=== PATIENT | female | born 1970 ===

== ENCOUNTER → 2018-01-05 | Outpatient (CLI) | payer BC ==
[2018-01-05 12:51] LABS: BASOPHILS ABSOLUTE AUTO 0.05 K/mm3 (0.00-0.23); BASOPHILS PERCENT AUTO 1 % (0-2); EOSINOPHILS ABSOLUTE AUTO 0.25 K/mm3 (0.00-0.68); EOSINOPHILS PERCENT AUTO 3 % (0-6); Hematocrit 45.3 % (33.0-51.0); Hemoglobin 15.6 g/dL (11.5-16.0); IMMATURE GRAN ABSOLUTE AUTO 0.02 K/mm3 (0.00-0.10); IMMATURE GRAN PERCENT AUTO 0 % (0-1); LYMPHOCYTES PERCENT AUTO 37 % (21-46); MONOCYTES ABSOLUTE AUTO 0.69 K/mm3 (0.16-1.47); MONOCYTES PERCENT AUTO 9 % (4-13); Mean Corpuscular HGB 31.5 pg (26.0-34.0); Mean Corpuscular HGB Conc 34.4 g/dL (31.5-36.5); Mean Corpuscular Volume 92 fL (80-100); Mean Platelet Volume 9.8 fL (9.1-12.4); NEUTROPHILS ABSOLUTE AUTO 3.72 K/mm3 (1.96-9.15); NEUTROPHILS PERCENT AUTO 49 % (41-73); Platelet Count 253 K/mm3 (150-400); RDW Coefficient Variation 13.2 % (11.7-14.2); RDW Standard Deviation 44.1 fL (35.1-46.3); Red Blood Cell Count 4.95 M/mm3 (3.80-5.20); White Blood Cell Count 7.53 K/mm3 (4.00-11.30)
[2018-01-05 13:03] LABS: Anion Gap 10 mmol/L (6-16); Blood Urea Nitrogen 10 mg/dL (8-24); Bun/Creatinine Ratio 14.1 (12.0-20.0); CO2, Blood 26 mmol/L (21-32); Calcium, Blood 9.4 mg/dL (8.5-10.1); Chloride, Blood 104 mmol/L (98-108); Creatinine, Blood 0.71 mg/dL (0.40-1.00); Glomerular Filtration Rate >60 (60-); Glucose, Blood 92 mg/dL (70-99); Potassium, Blood 3.7 mmol/L (3.5-5.5); Sodium, Blood 140 mmol/L (136-145)
[2018-01-05 13:04] LABS: Troponin I <0.017 ng/mL (0.000-0.040)
== END ==
LOC: LAB SHORT 12:46 → LAB EV 12:46
PROVIDERS: Physician Assistant
DX: R07.1 Chest pain on breathing (principal)
CPT/HCPCS: 80048; 84484; 85025

== ENCOUNTER 2025-10-01 12:16 | Day surgery (SDC) | payer OTHER ==
[~2025-10-01] VITALS: Ht 167.6 cm; Wt 66.0 kg
[~2025-10-01 12:16] MED LIST: Balanced Salt Epinephrine Irrigation Solution 500 mL IR SCH; Moxifloxacin HCL 0.5 MG/0.1 ML 0.4MLSYR RIGHTEYE SCH; Ondansetron 4 MG SoluTab MM PRN; PHENYLEPHRINE\\TROPICAMIDE\\TETRACAINE OPHTHALMIC DILATING SOLN RIGHTEYE PRN; Povidone-Iodine 450 DROP/30 ML Solution ONE; Povidone-Iodine 450 DROP/30 ML Solution RIGHTEYE SCH; Tetracaine HCl/Pf 0.5% Opth Soln 4 ml ONE
[2025-10-01] MEDS ORDERED: ROSUVASTATIN CA10 MG PO (13:10)
[2025-10-01] MEDS ORDERED: LOSARTAN POTASS25 M2 PO (13:10)
--- NOTE | 2025-10-01 13:18 | NUR ---
10/01/25 1318 JUDITH NICHOLS RESTING ON GURNEY, CALL LIGHT IN REACH, RAILS UP, BRAKES LOCKED. PT DENIES NEEDS/QUESTIONS AT THIS TIME.
--- NOTE | 2025-10-01 13:48 | NUR ---
10/01/25 1348 Judiht Vasquez 1320 BP:132/85 HR:91 O2:99% RESP:16
[2025-10-01 14:30] VITALS: BP 115/69
== END 2025-10-01 14:12 | disposition home or self-care (01) ==
LOC: ORSCSDS 12:16
PROVIDERS: Student in an Organized Health Care Education/Training Program
PROC: 08RJ3JZ Replacement of Right Lens with Synthetic Substitute, Percutaneous Approach (ICD-10-PCS; principal; 2025-10-01 14:30)
DX: H25.813 Combined forms of age-related cataract, bilateral (principal)
CPT/HCPCS: A9270; J2003; V2632

== ENCOUNTER 2025-10-21 11:25 | Day surgery (SDC) | payer OTHER ==
[~2025-10-21] VITALS: Ht 167.6 cm; Wt 63.4 kg
[~2025-10-21 11:25] MED LIST changes: +LOSARTAN POTASS25 M2 PO; +Moxifloxacin HCL 0.5 MG/0.1 ML 0.4MLSYR LEFTEYE SCH; -Moxifloxacin HCL 0.5 MG/0.1 ML 0.4MLSYR RIGHTEYE SCH; +PHENYLEPHRINE\\TROPICAMIDE\\TETRACAINE OPHTHALMIC DILATING SOLN LEFTEYE PRN; -PHENYLEPHRINE\\TROPICAMIDE\\TETRACAINE OPHTHALMIC DILATING SOLN RIGHTEYE PRN; +Povidone-Iodine 450 DROP/30 ML Solution LEFTEYE SCH; -Povidone-Iodine 450 DROP/30 ML Solution RIGHTEYE SCH; +ROSUVASTATIN CA10 MG PO
--- NOTE | 2025-10-21 12:04 | NUR ---
10/21/25 1204 Karime Obando PT REPORTS ANXIETY LEVEL 2-3/10 PRIOR TO ADMINISTRATION OF VALIUM 10MG PO @ 1203.
[2025-10-21] MEDS ORDERED: Tetracaine HCl 0.5% Opth Soln 15 ml LEFTEYE ONE (12:46)
--- NOTE | 2025-10-21 12:50 | NUR ---
10/21/25 1250 Yosef Matthews N 112/73 97% 10L BLOW BY O2 105 20
[2025-10-21 13:24] VITALS: BP 104/78
--- NOTE | 2025-10-21 13:27 | NUR ---
10/21/25 1327 Thomas Gilbert PT DENIED CP, SOB, MEDINA, NAUSEA, WEAKNESS, DIZZINESS, AND OTHER SYMPTOMS. SHE STATED HER HEART RATE IS ALWAYS ELEVATED AT HEALTHCARE FACILITIES BUT NORMAL AT HOME, AND SHE HAD BEEN NERVOUS PRE-OP. SHE WAS INSTRUCTED TO MONITOR B/P AND HEART RATE AT HOME AND FOLLOW UP WITH PCP NEEDED. SHE WAS ALSO INSTRUCTED TO SEEK EMERGENCY CARE FOR AFOREMENTIONED SYMPTOMS.
== END 2025-10-21 13:18 | disposition home or self-care (01) ==
LOC: ORSCSDS 11:25
PROVIDERS: Student in an Organized Health Care Education/Training Program
PROC: 08RK3JZ Replacement of Left Lens with Synthetic Substitute, Percutaneous Approach (ICD-10-PCS; principal; 2025-10-21 13:00)
DX: H25.812 Combined forms of age-related cataract, left eye (principal); Z96.1 Presence of intraocular lens
CPT/HCPCS: A9270; V2632

== ENCOUNTER 2025-10-23 08:03 | Emergency (ER) | payer OTHER ==
[~2025-10-23] VITALS: Ht 165.1 cm; Wt 63.5 kg
[~2025-10-23 08:03] MED LIST changes: -Balanced Salt Epinephrine Irrigation Solution 500 mL IR SCH; -Moxifloxacin HCL 0.5 MG/0.1 ML 0.4MLSYR LEFTEYE SCH; -Ondansetron 4 MG SoluTab MM PRN; -PHENYLEPHRINE\\TROPICAMIDE\\TETRACAINE OPHTHALMIC DILATING SOLN LEFTEYE PRN; -Povidone-Iodine 450 DROP/30 ML Solution LEFTEYE SCH; -Povidone-Iodine 450 DROP/30 ML Solution ONE; -Tetracaine HCl/Pf 0.5% Opth Soln 4 ml ONE
[2025-10-23 09:20] LABS: BASOPHILS ABSOLUTE AUTO 0.03 K/mm3 (0.00-0.23); BASOPHILS PERCENT AUTO 0 % (0-2); EOSINOPHILS ABSOLUTE AUTO 0.03 K/mm3 (0.00-0.68); EOSINOPHILS PERCENT AUTO 0 % (0-6); Hematocrit 46.8 % (33.0-51.0); Hemoglobin 16.0 g/dL (11.5-16.0); IMMATURE GRAN ABSOLUTE AUTO 0.01 K/mm3 (0.00-0.10); IMMATURE GRAN PERCENT AUTO 0 % (0-1); LYMPHOCYTES ABSOLUTE AUTO 1.08 K/mm3 (0.84-5.20); LYMPHOCYTES PERCENT AUTO 15 % (21-46); MONOCYTES ABSOLUTE AUTO 0.62 K/mm3 (0.16-1.47); MONOCYTES PERCENT AUTO 9 % (4-13); Mean Corpuscular HGB Conc 34.2 g/dL (31.5-36.5); Mean Corpuscular Volume 90 fL (80-100); NEUTROPHILS ABSOLUTE AUTO 5.28 K/mm3 (1.96-9.15); NEUTROPHILS PERCENT AUTO 75 % (41-73); NRBC ABSOLUTE 0.00 K/mm3 (0.00-0.02); NRBC Auto 0.0 /100 WBC (0.0-0.2); Platelet Count 247 K/mm3 (150-400); RDW Coefficient Variation 12.2 % (11.7-14.2); RDW Standard Deviation 40.3 fL (35.1-46.3)
[2025-10-23 09:36] LABS: Alanine Aminotransfer (ALT/SGP 46.0 U/L (12-78); Albumin, Blood 4.3 g/dL (3.4-5.0); Albumin/Globulin Ratio 1.3 (0.8-1.8); Anion Gap 9.0 mmol/L (3-11); Aspartate Aminotrans (AST/SGOT 28.0 U/L (12-37); Bilirubin, Total 0.8 mg/dL (0.1-1.0); Blood Urea Nitrogen 15.0 mg/dL (8-24); CO2, Blood 26.0 mmol/L (21-32); Calcium, Blood 9.2 mg/dL (8.5-10.1); Chloride, Blood 104.0 mmol/L (98-108); Creatinine, Blood 0.66 mg/dL (0.40-1.00); Globulin, Blood 3.3 g/dL (2.2-4.0); Glucose, Blood 120.0 mg/dL (70-99); Potassium, Blood 4.0 mmol/L (3.5-5.5); Sodium, Blood 135.0 mmol/L (136-145); Total Protein, Blood 7.6 g/dL (6.4-8.2)
[2025-10-23 10:04] VITALS: BP 116/81
== END 2025-10-23 11:27 | disposition home or self-care (01) ==
LOC: ER 08:03
PROVIDERS: Family Medicine
DX: G45.9 Transient cerebral ischemic attack, unspecified (principal); I10 Essential (primary) hypertension; E78.5 Hyperlipidemia, unspecified
CPT/HCPCS: 70450; 80053; 85025; 93005; 93010; 99284-25

== ENCOUNTER → 2025-10-30 | Outpatient (CLI) | payer OTHER | LOC: LAB 13:28 → LAB SHORT 13:28 | DX: R31.9 Hematuria, unspecified (principal) | CPT/HCPCS: 87086 ==